=== PATIENT | female | born 1990 | race Two or more races ===

== ENCOUNTER 2024-11-11 08:41 | Outpatient (CLI) | payer OTHER | END 2024-11-11 08:46 | disposition home or self-care (01) | LOC: SONOGRAMA 08:41 | PROVIDERS: ATTEND Pathology Anatomic Pathology & Clinical Pathology | DX: C73 Malignant neoplasm of thyroid gland (principal); D34 Benign neoplasm of thyroid gland; E07.89 Other specified disorders of thyroid ==